=== PATIENT | female | born 1970 | race Caucasian/White ===

== ENCOUNTER → 2018-09-23 | Outpatient (CLI) | payer BC ==
--- NOTE | 2018-09-23 10:44 | US ---
EXAMINATION TYPE: US abdomen complete DATE OF EXAM: 09/23/2018 COMPARISON: NONE CLINICAL HISTORY: R10.9 Abdominal pain. RUQ pain, NPO EXAM MEASUREMENTS: Liver Length: 16.7 cm Gallbladder Wall: 0.2 cm CBD: 0.6 cm CHD: 0.5 cm Spleen: 10.0 cm Right Kidney: 10.2 x 5.0 x 4.9 cm Left Kidney: 10.6 x 4.8 x 5.9 cm Pancreas: wnl Liver: wnl Gallbladder: wnl Evidence for sonographic Simental's sign: neg CBD: wnl CHD: wnl Spleen: wnl Right Kidney: wnl Left Kidney: wnl Upper IVC: wnl Abd Aorta: no AAA identified IMPRESSION: 1. Mild hepatomegaly with mild fatty infiltration. 2. Common bile duct is at the upper limits of normal.
== END | disposition home or self-care (01) ==
LOC: RADUSWWP 07:30
PROVIDERS: ATTEND Family Medicine
DX: K76.0 Fatty (change of) liver, not elsewhere classified (principal)
CPT/HCPCS: 76700

== ENCOUNTER → 2023-02-26 | Outpatient (CLI) | payer BC ==
--- NOTE | 2023-02-26 18:15 | CA ---
Transthoracic Echo Report Name: Robyn Parada Age: 52 Gender: F : 1970 Exam Date: 02/26/2023 16:02 Exam Location: [facility] Ht (in): 62 Wt (lb): 258 Ordering Physician: Yohan Mcarthur MD Attending/Referring Phys: Yohan Mcarthur MD Outside Sales Professional [place], [facility] Procedure CPT: Indications: I10 ESSENTIAL (PRIMARY) HYPERTENSION Cardiac Hx: Technical Quality: Fair Contrast 1: Total Dose (mL): Contrast 2: Total Dose (mL): MEASUREMENTS (Male / Female) Normal Values 2D ECHO LV Diastolic Diameter PLAX 4.6 cm 4.2 - 5.9 / 3.9 - 5.3 cm LV Systolic Diameter PLAX 3.2 cm IVS Diastolic Thickness 1.3 cm 0.6 - 1.0 / 0.6 - 0.9 cm LVPW Diastolic Thickness 1.3 cm 0.6 - 1.0 / 0.6 - 0.9 cm LV Relative Wall Thickness 0.6 RV Internal Dim ED PLAX 3.0 cm LA Systolic Diameter LX 3.2 cm 3.0 - 4.0 / 2.7 - 3.8 cm LV Diastolic Volume MOD 4C 161.4 cm??? LV Systolic Volume MOD 4C 92.7 cm??? LV Ejection Fraction MOD 4C 42.6 % LV Diastolic Length 4C 8.3 cm LV Systolic Length 4C 6.7 cm LV Diastolic Volume MOD 2C 114.5 cm??? LV Systolic Volume MOD 2C 61.5 cm??? LV Ejection Fraction MOD 2C 46.3 % LV Diastolic Length 2C 7.8 cm LV Systolic Length 2C 6.2 cm LA Volume 53.9 cm??? 18 - 58 / 22 - 52 cm??? M-MODE Aortic Root Diameter MM 2.9 cm MV E Point Septal Separation 0.9 cm AV Cusp Separation MM 2.0 cm DOPPLER AV Peak Velocity 156.0 cm/s AV Peak Gradient 9.7 mmHg MV Area PHT 3.2 cm??? Mitral E Point Velocity 90.1 cm/s Mitral A Point Velocity 108.2 cm/s Mitral E to A Ratio 0.8 MV Deceleration Time 236.9 ms MV E' Velocity 8.0 cm/s Mitral E to MV E' Ratio 11.2 TR Peak Velocity 280.2 cm/s TR Peak Gradient 31.4 mmHg Right Ventricular Systolic Press 36.4 mmHg FINDINGS Left Ventricle Left ventricular ejection fraction is estimated at 50-55 %. Left ventricular cavity size normal. Mild concentric left ventricular hypertrophy. Normal left ventricular wall motion.Mildly increased septal wall thickness Right Ventricle Normal right ventricular size and function. Mild pulmonary hypertension. Right Atrium Normal right atrial size. Left Atrium Normal left atrial size. Mildly increased left atrial volume. Mitral Valve Structurally normal mitral valve. No evidence for mitral valve prolapse. No mitral stenosis. Trace mitral regurgitation. Aortic Valve Trileaflet aortic valve. No aortic valve stenosis or regurgitation. Tricuspid Valve Structurally normal tricuspid valve. Trace to mild tricuspid regurgitation. Pulmonic Valve Structurally normal pulmonic valve. No pulmonic regurgitation. Pericardium Normal pericardium. No pericardial effusion. Aorta Normal size aortic root and proximal ascending aorta. CONCLUSIONS LVH with preserved systolic function Previewed by: Dr. Jeffrey Allan MD (Electronically Signed) Final Date: 26 February 2023 18:14
== END | disposition home or self-care (01) ==
LOC: RADECHMAIN 15:53
PROVIDERS: ATTEND Family Medicine
DX: I10 Essential (primary) hypertension (principal)
CPT/HCPCS: 93306

== ENCOUNTER → 2024-05-12 | Outpatient (CLI) | payer BC ==
--- NOTE | 2024-05-13 12:05 | MM ---
Reason for Exam: Screening (asymptomatic). Last mammogram was performed 6 year(s) and 9 month(s) ago. Patient History: Menarche at age 13. First Full-Term at age 40. Late child-bearing (after 30). Mother had breast cancer under age 50. Risk Values: Fani 5 year model risk: 2.2%. NCI Lifetime model risk: 16.5%. Tissue Density: The breasts are almost entirely fatty. Findings: Analyzed By CAD. Right breast: There is no suspicious group of microcalcifications or new suspicious mass. Left breast: There is no suspicious group of microcalcifications or new suspicious mass. Overall Assessment: Negative, BI-RAD 1 Management: Screening Mammogram of both breasts in [address] [facility] will attempt to contact patient to return for supplemental views and ultrasound if indicated. Patient should continue monthly self-breast exams. A clinical breast exam by your physician is recommended on an annual basis. This exam should not preclude additional follow-up of suspicious palpable abnormalities. Note on Fani scores and lifetime risk: 1. A Fani score greater than 3% is considered moderate risk. If this is the case, consider specialist referral to assess eligibility for a risk reducing agent. 2. If overall lifetime risk for the development of breast cancer is 20% or higher, the patient may qualify for future screening with alternating mammogram and breast MRI. Electronically signed and approved by: Anders Ryan DO
== END | disposition home or self-care (01) ==
LOC: RADMAMWWP 07:15
PROVIDERS: ATTEND Family Medicine
DX: Z12.31 Encounter for screening mammogram for malignant neoplasm of breast (principal); Z80.3 Family history of malignant neoplasm of breast
CPT/HCPCS: 77063; 77067

== ENCOUNTER → 2025-05-13 | Outpatient (CLI) | payer BC ==
--- NOTE | 2025-05-13 09:19 | MM ---
Reason for Exam: Screening (asymptomatic). Last screening mammogram was performed 12 month(s) ago. Patient History: Menarche at age 13. First Full-Term at age 40. Late child-bearing (after 30). Currently using Estrogen, starting at age 54. Mother had breast cancer under age 50. Risk Values: Fani 5 year model risk: 2.3%. NCI Lifetime model risk: 16.2%. Prior Study Comparison: 11/30/2014 Bilateral Screening Mammogram, [facility] . 08/05/2017 Bilateral Screening Mammogram, [facility] . 05/12/2024 Bilateral MG 3D screening mammo w/cad, [facility]. Tissue Density: There are scattered areas of fibroglandular density. Findings: Analyzed By CAD. Right breast: There is no suspicious group of microcalcifications or new suspicious mass. Left breast: There is no suspicious group of microcalcifications or new suspicious mass. Overall Assessment: Negative, BI-RAD 1 Management: Screening Mammogram of both breasts in [address] [facility] will attempt to contact patient to return for supplemental views and ultrasound if indicated. Patient should continue monthly self-breast exams. A clinical breast exam by your physician is recommended on an annual basis. This exam should not preclude additional follow-up of suspicious palpable abnormalities. Note on Fani scores and lifetime risk: 1. A Fani score greater than 3% is considered moderate risk. If this is the case, consider specialist referral to assess eligibility for a risk reducing agent. 2. If overall lifetime risk for the development of breast cancer is 20% or higher, the patient may qualify for future screening with alternating mammogram and breast MRI. [facility], , 05/13/2025 9:16 AM. Electronically signed and approved by: Anders Ryan DO
== END | disposition home or self-care (01) ==
LOC: RADMAMWWP 08:37
PROVIDERS: ATTEND Family Medicine
DX: Z12.31 Encounter for screening mammogram for malignant neoplasm of breast (principal); R92.323 Mammographic fibroglandular density, bilateral breasts; Z80.3 Family history of malignant neoplasm of breast
CPT/HCPCS: 77063; 77067